=== PATIENT | female | born 1985 | race Asian ===

== ENCOUNTER 2019-04-13 06:27 | Day surgery (SDC) | payer OTHER ==
[2019-04-13] MEDS ORDERED: DESFLURANE 15 MIN (07:00)
[2019-04-13] MEDS ORDERED: DEXAMETHASONE 4 MG/ML 5 ML INJ (11:46)
[2019-04-13] MEDS ORDERED: CEFAZOLIN 1 GM INJ (11:46)
[2019-04-13] MEDS ORDERED: MIDAZOLAM 1 MG/ML 2 ML INJ (11:46)
[2019-04-13] MEDS ORDERED: PROPOFOL 20 ML (11:46)
[2019-04-13] MEDS ORDERED: ROCURONIUM 50 MG INJ (11:46)
[2019-04-13] MEDS ORDERED: NEOSTIGMINE 3 MG/3 ML SYRINGE (11:46)
[2019-04-13] MEDS ORDERED: GLYCOPYRROLATE 0.4 MG INJ (11:46)
[2019-04-13] MEDS ORDERED: FENTAnyl 50 MCG/ML VIAL (11:46)
[2019-04-13] MEDS ORDERED: ONDANSETRON 4 MG INJ (11:46)
[2019-04-13] MEDS ORDERED: LIDOCAINE 1%/EPI 30 ML INJ (12:14)
[2019-04-13] MEDS ORDERED: BACITRACIN/POLYMYXIN 28.35 GM OINT TOP (12:15)
[2019-04-13] MEDS ORDERED: COCAINE 4% 4 ML TOP (12:15)
[2019-04-13] MEDS ORDERED: IPRATROPIUM (NEB) 0.5 MG/2.5 ML AMP HHN (12:30)
[2019-04-13] MEDS ORDERED: OXYCODONE/ACETAMINOPHEN (5/325) TAB PO (12:30)
[2019-04-13] MEDS ORDERED: HYDROmorphONE 1 MG/5 ML IV SYRINGE IV ×3 (12:30)
[2019-04-13] MEDS ORDERED: FENTAnyl 50 MCG/ML VIAL IV ×2 (12:30)
[2019-04-13] MEDS ORDERED: EPHEDrine 25 MG/5 ML SYG IV (12:30)
[2019-04-13] MEDS ORDERED: TRIMETHOBENZAMIDE 100 MG/ML VIAL IM (12:30)
[2019-04-13] MEDS ORDERED: DIPHENHYDRAMINE 50 MG INJ IV (12:30)
[2019-04-13] MEDS ORDERED: hydrALAzine 20 MG INJ IV (12:30)
[2019-04-13] MEDS ORDERED: MIDAZOLAM 1 MG/ML 2 ML INJ IV (12:30)
[2019-04-13] MEDS ORDERED: LABETALOL HCL 20MG INJ IV (12:30)
[2019-04-13] MEDS ORDERED: MEPERIDINE 25 MG INJ IV (12:30)
[2019-04-13] MEDS ORDERED: ALBUTEROL 0.083% (NEB) 2.5 MG/3 ML AMP HHN (12:30)
[2019-04-13] MEDS: LIDOCAINE 1%/EPI 30 ML INJ INJ (13:00)
[2019-04-13] MEDS: COCAINE 4% 4 ML TOP (13:00)
[2019-04-13] MEDS: BACITRACIN/POLYMYXIN 0.9 GM OINT TOP (13:36)
[2019-04-13] MEDS ORDERED: METOCLOPRAMIDE 10 MG INJ (13:43)
[2019-04-13] MEDS: ONDANSETRON 4 MG INJ IV (14:51)
[2019-04-13] MEDS: FENTAnyl 50 MCG/ML VIAL IV (14:51)
[2019-04-13] MEDS: OXYCODONE/ACETAMINOPHEN (5/325) TAB PO (15:25)
== END 2019-04-13 15:49 | disposition home or self-care (01) ==
LOC: SDS 06:27
DX: J34.2 Deviated nasal septum (principal); J34.3 Hypertrophy of nasal turbinates; J34.89 Other specified disorders of nose and nasal sinuses
CPT/HCPCS: 30140; 88300